=== PATIENT | female | born 1965 | race Caucasian/White ===

== ENCOUNTER 2019-09-25 15:00 | Outpatient (RCR) | payer OTHER, SELFPAY | END 2019-12-03 23:59 | disposition home or self-care (01) | LOC: ANHBWCAUD 15:00 | PROVIDERS: PCP Physician Assistant; Visit Provider Physician Assistant | DX: Z46.1 Encounter for fitting and adjustment of hearing aid (principal) | CPT/HCPCS: 99199; V5160; V5261 ==